=== PATIENT | female | born 1970 | race Caucasian/White ===

== ENCOUNTER 2018-08-26 12:10 | Emergency (ER) | payer OTHER ==
--- NOTE | 2018-08-26 12:32 | ERPHSYRPT ---
- History of Present Illness Time Seen by Provider: 08/26/18 12:31 Source: patient Exam Limitations: no limitations Physician History: 47 y/o obese white female slipped at 0800 this am and fell. pt c/o neck pain, right shoulder and right hip pain. norco meds not helping. pt was wanting percocet pain meds. pt states she has meloxicam at home. pt did not hit her head and did not lose consciousness. pt does not want any xrays. she does not feel anything is dislocated or fractured. pt states she has had phenergan in past without issues. Occurred: this morning Reason for Fall: slipped (on ice) Injuries/Pain Location: neck, upper extremity (right shoulder and hip) Loss of Consciousness: no loss of consciousness Quality: aching Severity of Pain-Max: moderate Severity of Pain-Current: moderate Modifying Factors: Improves With: movement Associated Symptoms (Fall): neck pain Allergies/Adverse Reactions: diphenhydramine [From Benadryl] Allergy (Verified 08/26/18 12:45) droperidol Allergy (Verified 08/26/18 12:45) prochlorperazine [From Compazine] Allergy (Verified 08/26/18 12:45) Home Medications: Butalbital/Aspirin/Caffeine [Jdqodf-Cgypmmm-Glxcm 50-325-40] 1 each PO DAILY [History] Clonazepam 1 mg PO HS 08/26/18 [History] Cyclobenzaprine HCl 10 mg [Cyclobenzaprine 10 MG] 10 mg PO Q12H PRN PRN [History] Gabapentin 300 mg PO DAILY 08/26/18 [History] Hydrocodone Bit/Acetaminophen [[place] 7.5-325 Tablet] 1 each PO Q4HPRN PRN [History] Loratadine 10 mg [Claritin 10 mg] 10 mg PO DAILY 08/26/18 [History] Lorazepam 1 mg [Ativan 1 MG] 1 mg PO Q12H PRN PRN 08/26/18 [History] Losartan/Hydrochlorothiazide [Losartan-Hctz 100-12.5 mg Tab] 1 each PO DAILY [History] - Review of Systems Constitutional: No Symptoms Eyes: No Symptoms Ears, Nose, & Throat: No Symptoms Respiratory: No Symptoms Cardiac: No Symptoms Abdominal/Gastrointestinal: No Symptoms Genitourinary Symptoms: No Symptoms Musculoskeletal: Neck Pain (mild), Joint Pain (right hip) Skin: No Symptoms Neurological: No Symptoms Psychological: No Symptoms Endocrine: No Symptoms Hematologic/Lymphatic: No Symptoms Immunological/Allergic: No Symptoms All Other Systems: Reviewed and Negative - Past Medical History Pertinent Past Medical History: Yes Neurological History: No Pertinent History ENT History: No Pertinent History Cardiac History: No Pertinent History Respiratory History: No Pertinent History Endocrine Medical History: No Pertinent History Musculoskeletal History: No Pertinent History GI Medical History: No Pertinent History History: No Pertinent History Psycho-Social History: No Pertinent History Female Reproductive Disorders: No Pertinent History - Past Surgical History Neuro Surgical History: No Pertinent History Cardiac: No Pertinent History Respiratory: No Pertinent History Gastrointestinal: No Pertinent History Genitourinary: No Pertinent History Musculoskeletal: No Pertinent History Female Surgical History: No Pertinent History - Nursing Vital Signs Nursing Vital Signs: Initial Vital Signs Temperature 97.8 F 08/26/18 12:33 Pulse Rate 85 08/26/18 12:33 Respiratory Rate 20 08/26/18 12:33 Blood Pressure 115/81 08/26/18 12:33 O2 Sat by Pulse Oximetry 98 08/26/18 12:33 Pain Scale Pain Intensity 7 - [place] Coma Score Best Eye Response ([place]): (4) open spontaneously Best Verbal Response ([place]): (5) oriented Best Motor Response ([place]): (6) obeys commands [place] Total: 15 - Physical Exam General Appearance: no apparent distress, alert, anxiety Head Injury: no evidence of injury Eye Exam: PERRL/EOMI, eyes nml inspection ENT Exam: airway nml, hearing grossly normal, No evidence of ENT injury, No dental injury Neck Exam: supple, trachea midline, full range of motion, normal alignment, normal inspection Respiratory/Chest Exam: normal breath sounds, No chest tenderness, No respiratory distress, No ecchymosis, No crepitus, No rhonchi, No wheezing, No accessory muscle use Cardiovascular Exam: normal heart sounds, regular rate/rhythm, normal peripheral pulses, No murmur Gastrointestinal Exam: soft, normal bowel sounds, No tenderness, No guarding, No rebound Rectal Exam: not done Back Exam: normal inspection, normal range of motion, vertebral tenderness, No CVA tenderness Extremity Exam: normal inspection, normal range of motion, pelvis stable Neurologic Exam: alert, oriented x 3, cooperative, 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 follow up with primary doctor for further management Prescriptions: Carisoprodol 350 mg [Soma 350 mg] 350 mg PO Q8H PRN PRN #10 tablet PRN Reason: Muscle Spasms
[2018-08-26 12:45] VITALS: BP 115/81; PULSE 85; O2SAT 98
[2018-08-26] MEDS ORDERED: Phenergan 25 MG INJ ONE (13:20)
[2018-08-26] MEDS ORDERED: Hydromorphone 1 mg/ml Ampule ONE (13:21)
[2018-08-26] MEDS: Phenergan 25 MG INJ IM ONE (13:29)
[2018-08-26] MEDS: Hydromorphone 1 mg/ml Ampule IM ONE (13:31)
== END 2018-08-26 14:01 | disposition home or self-care (01) ==
LOC: ED 12:10
DX: M54.2 Cervicalgia (principal); M25.511 Pain in right shoulder; M25.551 Pain in right hip; W00.2XXA Other fall from one level to another due to ice and snow, initial encounter; Y93.29 Activity, other involving ice and snow
CPT/HCPCS: 96372; 99283; J1170; J2550